=== PATIENT | male | born 1955 | race American Indian/Alaskan Native ===

== ENCOUNTER 2017-01-08 00:30 | Emergency (ER) | payer SELFPAY ==
[2017-01-08 01:34] LABS: BASO % 0.7 % (0.0-2.0); EOS # 0.2 K/uL (0.0-0.7); EOS % 3.3 % (0.0-4.0); HEMOGLOBIN 11.7 g/dL (12.0-18.0); LYMPH # 2.1 K/uL (1.0-4.3); LYMPH % 45.4 % (20.0-40.0); MEAN CELL VOLUME 90.2 fL (80.0-94.0); MEAN CORPUSCULAR HEMOGLOBIN 29.9 pg (27.0-31.0); MEAN CORPUSCULAR HGB CONC 33.1 g/dL (33.0-37.0); MEAN PLATELET VOLUME 7.5 fL (7.2-11.7); MONO # 0.4 K/uL (0.0-0.8); MONO % 8.2 % (0.0-10.0); NEUT % 42.4 % (50.0-75.0); NRBC % 0.3 % (0.0-2.0); RBC 3.91 Mil/uL (4.40-5.90); RED CELL DISTRIBUTION WIDTH 14.7 % (11.5-14.5); WHITE BLOOD COUNT 4.7 K/uL (4.8-10.8)
--- NOTE | 2017-01-08 01:42 | C.PDOC ---
History Of Present Illness A 61 M c/o right leg swelling for 4 days. Swelling is without any inciting factor. Denies trauma or other complaints. no fevers, sob, cp, abdominal pain, recent travel, sx. Time Seen by Provider: 01/08/17 01:14 Chief Complaint (Nursing): Lower Extremity Problem/Injury History Per: Patient History/Exam Limitations: no limitations Onset/Duration Of Symptoms: Days Current Symptoms Are (Timing): Still Present Severity: Mild Recent travel outside of the [place]: No Additional History Per: Patient Past Medical History Reviewed: Historical Data, Nursing Documentation, Vital Signs Vital Signs: Last Vital Signs Temp 97.3 F L 01/08/17 03:05 Pulse 56 L 01/08/17 03:05 Resp 19 01/08/17 03:05 BP 142/85 01/08/17 03:05 Pulse Ox 98 01/08/17 04:31 - Medical History PMH: HTN Family History: States: Unknown Family Hx - Social History Hx Alcohol Use: No Hx Substance Use: No - Immunization History Hx Tetanus Toxoid Vaccination: No Hx Influenza Vaccination: No Hx Pneumococcal Vaccination: No Review Of Systems Except As Marked, All Systems Reviewed And Found Negative. Constitutional: Negative for: Other (Trauma) Musculoskeletal: Positive for: Leg Pain (Right leg swelling) Physical Exam - Physical Exam Appears: Non-toxic, No Acute Distress Skin: Warm, Dry Head: Atraumatic, Normacephalic Cardiovascular: Rhythm Regular Respiratory: Normal Breath Sounds, No Rales, No Rhonchi, No Wheezing Extremity: Normal ROM, Capillary Refill (<2secs), Swelling (Right leg swelling, moderate, warm to touch) Pulses: Left Dorsalis Pedis: Normal, Right Dorsalis Pedis: Normal Neurological/Psych: Oriented x3, Normal Speech, Normal Cognition, Normal Motor, Normal Sensation, Other (No focal deficit) ED Course And Treatment - Laboratory Results Result Diagrams: 01/08/17 01:24 01/08/17 01:24 O2 Sat by Pulse Oximetry: 98 (RA) Pulse Ox Interpretation: Normal Medical Decision Making Medical Decision Making: Impression: A 61 M c/o right leg swelling for 4 days. Swelling is without any inciting factor. cellultis vs dvt, less likely chf. Plans: -Blood work up -Reassess 430: labs cxr neg as read byjeromy howard. no leukocytosis. dimer neg. dvt less likely. will give pt antibiotic, advise outpt f/u and return precauitions Disposition - Disposition Referrals: [facility] [Outside] [facility] [Outside] [facility] [Outside] Disposition: HOME/ ROUTINE Disposition Time: 04:00 Condition: STABLE Additional Instructions: please follow up with your doctor/clinic return to er with worsening symptosm or concerns. Prescriptions: Sulfamethoxazole/Trimethoprim [Bactrim DS 800 mg-160 mg] 1 tab PO BID #20 tab Instructions: Cellulitis (ED), Leg Edema (ED) - Clinical Impression Clinical Impression: Leg swelling, Cellulitis - Scribe Statement The provider has reviewed the documentation as recorded by the Scribjeromy santos All medical record entries made by the Sarojibjeromy were at my direction and personally dictated by me. I have reviewed the chart and agree that the record accurately reflects my personal performance of the history, physical exam, medical decision making, and the department course for this patient. I have also personally directed, reviewed, and agree with the discharge instructions and disposition.
[2017-01-08 01:50] LABS: PARTIAL THROMBOPLASTIN TIME 36 SECONDS (21-34); PROTHROMBIN TIME 11.6 SECONDS (9.7-12.2)
[2017-01-08 01:54] LABS: D DIMER < 200 ng/mlDDU (0-243)
[2017-01-08 02:05] LABS: ALBUMIN 3.5 g/dL (3.5-5.0)
[2017-01-08 02:08] LABS: ALB/GLOB RATIO 1.2 (1.0-2.1); ALT/SGPT 28 U/L (21-72); AST/SGOT 32 U/L (17-59); BLOOD UREA NITROGEN 16 mg/dL (9-20); GFR AFRICAN-AMERICAN > 60; GFR NON-AFRICAN AMERICAN > 60
[2017-01-08 02:09] LABS: CALCIUM 8.3 mg/dl (8.6-10.4)
[2017-01-08 02:37] LABS: B-TYPE NATRIURETIC PEPTIDE 158 pg/mL (0-900)
[2017-01-08] MEDS ORDERED: Tmp-Smz 800 mg-160 mg DS Tab PO STA (02:45)
[2017-01-08] MEDS ORDERED: Tmp-Smz 800 mg-160 mg DS Tab ONE (02:55)
[2017-01-08 03:06] VITALS: BP 142/85; PULSE 56; RESP 19; TEMP 97.3
[2017-01-08 04:31] VITALS: O2SAT 98
--- NOTE | 2017-01-08 08:55 | RAD ---
HISTORY: sob COMPARISON: No prior. FINDINGS: LUNGS: There is mild pulmonary venous congestion. PLEURA: No significant pleural effusion identified, no pneumothorax apparent. CARDIOVASCULAR: The heart is enlarged. OSSEOUS STRUCTURES: No significant abnormalities. VISUALIZED UPPER ABDOMEN: Normal. OTHER FINDINGS: None. IMPRESSION: Mild cardiomegaly and pulmonary venous congestion.
== END 2017-01-08 03:07 | disposition home or self-care (01) ==
LOC: C.ER 00:30
DX: L03.115 Cellulitis of right lower limb (principal); M79.89 Other specified soft tissue disorders; I10 Essential (primary) hypertension; F17.210 Nicotine dependence, cigarettes, uncomplicated